=== PATIENT | female | born 1985 | race Asian ===

== ENCOUNTER 2022-10-12 10:08 | Emergency (ER) | payer MEDICAID ==
[~2022-10-12] VITALS: Ht 149.9 cm; Wt 90.9 kg
[~2022-10-12 10:08] MED LIST: BENZ1TAB7 PO; DIVA-81 PO; ONDA4TAB9 PO; PROP10TA10 PO
[2022-10-12 10:38] VITALS: BP 134/94
[2022-10-12 12:04] LABS: CLARITY,URINE SLIGHTLY CLOUDY (Clear); COLOR,URINE YELLOW (Yellow); GLUCOSE, URINE NEGATIVE (Neg); KETONES,URINE NEGATIVE (Neg); LEUKOCYTE ESTERASE ,URINE NEGATIVE (Neg); NITRITES, URINE POSITIVE (Neg); OCCULT BLOOD,URINE NEGATIVE (Neg); PROTEIN,URINE NEGATIVE (Neg); URINE HCG NEGATIVE (NEG); UROBILINOGEN,URINE 0.2 E.U/dL (0.2-1.0)
[2022-10-12 12:14] LABS: UA COLLECTION TYPE CLN CATCH MIDSTREAM
[2022-10-12] MEDS ORDERED: cephalexin 500mg capsule PO ONE (12:20)
[2022-10-12] MEDS ORDERED: CEPH500C82 PO (12:24)
[2022-10-12 13:01] LABS: SQUAMOUS EPITHELIAL CELL,UR MANY /LPF (FEW)
[2022-10-12 13:02] LABS: BACTERIA,URINE FEW /HPF (Neg); MUCUS STRANDS NONE SEEN /LPF (Neg); RBC,URINE 0-2 /HPF (0-2); TRANSITIONAL EPI CELLS,URINE FEW /HPF; WBC,URINE 0-4 /HPF (0-4)
== END 2022-10-12 12:36 | disposition home or self-care (01) ==
LOC: ER 10:09
DX: N39.0 Urinary tract infection, site not specified (principal); F41.9 Anxiety disorder, unspecified; F32.A Depression, unspecified; F20.9 Schizophrenia, unspecified; Z79.899 Other long term (current) drug therapy
CPT/HCPCS: 81001; 81025; 99283

== ENCOUNTER 2024-03-23 15:05 | Emergency (ER) | payer MEDICAID ==
[~2024-03-23] VITALS: Ht 149.9 cm; Wt 80.9 kg
[~2024-03-23 15:05] MED LIST changes: -BENZ1TAB7 PO; +BENZ1TAB78 PO; +CLON1TAB12 PO; -DIVA-81 PO; +DIVA500T9 PO; +LEVO25TA7 PO; -ONDA4TAB9 PO; +QUET100T34 PO; +RISP-32 PO; +RISP3TAB77 PO
[2024-03-23 15:19] VITALS: TEMP 98.7
[2024-03-23 15:42] LABS: BASOPHILS % (AUTO) 0.4 % (0-1); EOSINOPHILS # (AUTO) 0.1 X10'3 (0-0.9); EOSINOPHILS % (AUTO) 1.1 % (0-6); HEMATOCRIT 39.7 % (35.0-45.0); HEMOGLOBIN 12.9 g/dl (12.0-16.0); LYMPHOCYTES # (AUTO) 2.1 X10'3 (1.1-4.8); LYMPHOCYTES % (AUTO) 28.7 % (21-51); MEAN CORPUSCULAR HEMOGLOBIN 20.1 PG (27.0-31.0); MEAN CORPUSCULAR HGB CONC 32.5 g/dL (33.0-36.5); MEAN CORPUSCULAR VOLUME 61.6 FL (78-98); MEAN PLATELET VOLUME 8.7 FL (7.4-10.4); MONOCYTES % (AUTO) 13.8 % (2-12); NEUTROPHILS # (AUTO) 4.1 X10'3 (1.8-7.7); PLATELET COUNT 347 X10'3 (140-440); RED BLOOD COUNT 6.45 X10'6 (4.20-5.60); RED CELL DISTRIBUTION WIDTH 16.9 % (11.5-14.5); WHITE BLOOD COUNT 7.3 X10'3 (4.5-11.0)
[2024-03-23 16:05] LABS: ALBUMIN 3.6 G/DL (3.4-5.0); ANION GAP 13 (8-16); ANISOCYTOSIS 1+; BLOOD UREA NITROGEN 4 MG/DL (7-18); BUN/CREATININE RATIO 4.5 (10.0-20.0); CALCIUM 9.2 MG/DL (8.5-10.1); CHLORIDE 102 MMOL/L (99-107); CREATININE 0.88 MG/DL (0.40-0.90); GLUCOSE 113 MG/DL (70-104); MICROCYTOSIS 2+; PLATELET ESTIMATE NORMAL; POTASSIUM 3.6 MMOL/L (3.5-5.1); PRO BRAIN NATRIURETIC PEPTIDE < 30 PG/ML (0-125); SODIUM 138 MMOL/L (135-145); TOTAL CARBON DIOXIDE 23.2 MMOL/L (24-32); eCRCL 60 ML/MIN; eGFR 72 ML/MIN
[2024-03-23 16:06] LABS: STOMATOCYTES FEW; TARGET CELLS 1+
[2024-03-23 16:07] LABS: HYPOCHROMASIA 2+
[2024-03-23 17:41] VITALS: BP 131/89; PULSE 85; RESP 15; O2SAT 99
== END 2024-03-23 17:40 | disposition home or self-care (01) ==
LOC: ER 15:06
DX: R07.89 Other chest pain (principal); Z79.899 Other long term (current) drug therapy; Z79.2 Long term (current) use of antibiotics
CPT/HCPCS: 36415; 71045; 80048; 83880; 84484; 85008; 85025; 93005; 99285